=== PATIENT | male | born 1990 | race Caucasian/White ===

== ENCOUNTER 2018-07-12 11:46 | Day surgery (SDC) | payer OTHER ==
[~2018-07-12 11:46] MED LIST: CEFAZOLIN 2 GM/D5W RTU 2 GM/50 ML RTUPB IV ONE; CEFAZOLIN 2 GM/D5W RTU 2 GM/50 ML RTUPB IV PRN
[2018-07-12] MEDS ORDERED: DEXAMETHASONE SOD PHOSPHATE INJ 4 MG/1 ML VIAL ONE (12:40)
[2018-07-12] MEDS ORDERED: FENTANYL CITRATE INJ/PF 100 MCG/2 ML AMPUL ONE ×2 (12:40→16:23)
[2018-07-12] MEDS ORDERED: ONDANSETRON HCL INJ/PF 4 MG/2 ML SDV ONE (12:40)
[2018-07-12] MEDS ORDERED: PROPOFOL INJ 200 MG/20 ML VIAL IV ONE (12:40)
[2018-07-12] MEDS ORDERED: MIDAZOLAM 2 MG/2 ML INJ ONE (12:40)
[2018-07-12] MEDS ORDERED: ACETAMINOPHEN 1,000 MG/100 ML RTUPB IV ONE (12:41)
[2018-07-12] MEDS ORDERED: LIDOCAINE 1%/EPINEPHRINE INJ 20 ML VIAL ONE (13:16)
[2018-07-12] MEDS ORDERED: MORPHINE SULFATE 10 MG/ML INJ IV PRN (14:29)
[2018-07-12] MEDS ORDERED: FENTANYL CITRATE INJ/PF 100 MCG/2 ML AMPUL IV PRN ×3 (14:29)
[2018-07-12] MEDS ORDERED: ONDANSETRON HCL INJ/PF 4 MG/2 ML SDV IV PRN ×2 (14:29→16:26)
[2018-07-12] MEDS ORDERED: PROMETHAZINE HCL INJ 25 MG/1 ML VIAL IV PRN ×2 (14:29)
[2018-07-12] MEDS ORDERED: MEPERIDINE HCL/PF INJ 25 MG/1 ML DISP.SYRIN IV PRN (14:29)
[2018-07-12] MEDS ORDERED: DIPHENHYDRAMINE HCL 50 MG/ML VIAL IV PRN (14:29)
[2018-07-12] MEDS ORDERED: OXYCODONE-ACETAMINOPHEN 5-325 MG TABLET PO PRN (16:26)
--- NOTE | 2018-07-12 16:26 | Discharge Summary ---
Discharge Summary (SDC) - Discharge Final Diagnosis: Left small finger flexor tendon laceration, ulnar digital nerve laceration Date of Surgery: 07/12/18 Discharge Date: 07/12/18 Condition: Good Treatment or Instructions: Schedule Follow Up w/ Dr. Herson Garcia @ [facility] to be seen in 10-14 days or as scheduled [place]: [place]: [place]: Ice and elevate Keep splint clean/dry/intact. If your fingers become numb please unwrap the Wagner wrap but leave the splint in place, if the sensation does not return within 30 minutes please return to the emergency department. Please use ibuprofen (Motrin or Advil) 600-800 mg every 8 hours as needed for pain or fever DO NOT TAKE w/ TORADOL may use once TORADOL complete. You may also use acetaminophen (Tylenol) 1000 mg every 4-6 hours as needed for pain or fever. Please be aware that many medications contain acetaminophen, do not exceed a total of 1000 mg of acetaminophen every 6 hours. If ibuprofen and acetaminophen are not sufficient for your pain you may take the Percocet/[place]. Please be aware that the Percocet/[place] does contain Tylenol. Stool softener of choice when on pain medication. Prescriptions: Ketorolac Tromethamine [Toradol 10 mg Tablet] 10 mg PO Q8HP PRN #12 tablet PRN Reason: Oxycodone HCl/Acetaminophen [Percocet 5-325 mg Tablet] 1 - 2 tab PO Q6 #25 tablet Discharge Diet: As Tolerated Respiratory Treatments at Home: Deep Breathing/Coughing Discharge Activity: No Lifting Over 10 Pounds, No Lifting/Push/Pulling Report the Following to Your Physician Immediately: Fever over 101 Degrees, Unusual Bleeding, Redness, Swelling, Warmth, Increased Soreness
[2018-07-12] MEDS ORDERED: KETOROLAC TROMETHAMINE INJ/PF 30 MG/1 ML SDV ONE (16:35)
--- NOTE | 2018-07-12 16:35 | Operative Report ---
Operative Report DATE OF SURGERY: 07/12/18 PREOPERATIVE DIAGNOSIS: Left small finger zone II flexor tendon laceration, ulnar digital nerve laceration POSTOPERATIVE DIAGNOSIS: Left small finger zone I/II flexor tendon laceration, ulnar digital nerve laceration, skin loss along the PIP joint OPERATION: 1. Zone I/II FDP repair left small finger. 2. Ulnar digital nerve repair left small finger. 3. Complex closure less than 3 cm with skin advancement SURGEON: MIKE AYERS ANESTHESIA: LMAC COMPLICATIONS: None ESTIMATED BLOOD LOSS: Minimal PROCEDURE: Indication for above procedure: 27-year-old male who sustained a injury to his left small finger while he was evacuated. Patient was seen outside emergency room where the area was irrigated and loosely closed. He was then sent to sc for further evaluation and treatment. Patient findings on examination of digital nerve injury along with flexor tendon injury. Postoperative expectations, prognosis and rehabilitation explained to the patient after discussing risks and benefits of the surgical procedure patient verbalized understanding consented for the procedure. Procedure In Detail: Patient was seen and evaluated in the preoperative holding area. The LEFT upper extremity was initialized and marked. In the preoperative holding area the left upper extremity at the fifth digit was prepped with alcohol and a digital block was performed injecting 1% lidocaine with epinephrine 1: 100,000 patient tolerated procedure well. Patient received 2g of Ancef IV for bacterial prophylaxis. Patient was taken back to the operative room where transferred to the operative table and placed under general anesthesia. Once they were adequately anesthetized a nonsterile tourniquet was placed on the upper extremity. A surgical team debriefing was performed ensuring all instrumentation was available, the surgical procedure was discussed with possible concerns reviewed. Additional injection was performed to the MP, PIP and DIP joints with 1% lidocaine with epinephrine 1: 100,002 cc at the PIP and MP joints and 1 cc at the DIP joint. The upper extremity was prepped with Betadine and draped in a sterile fashion. A timeout was done identifying correct patient, procedure and extremity everyone in attendance agree with this and verbalized no concerns. Joseph's skin incision was made beginning at the A1 maury extending along the DIP joint. There was significant necrosis of the skin along the proximal phalanx leaving the area of skin defect with foul odor and a small amount of purulent drainage. Blunt dissection was performed. The area was copiously irrigated with normal saline. Exploration of the digit demonstrated intact radial neurovascular bundle but disruption of the ulnar digital nerve with a 30 mm defect. There is also laceration of the FDS and FDP with scarring of the distal aspect of the A2 maury and complete loss of the A4 maury in the volar plate along the DIP joint. The laceration of the tendon was in a oblique manner resulting in deficient tendon within zone I. The proximal aspect of the FDP was fed through the maury sheaths avoiding manipulation of the distal aspect to optimize healing. It was brought out to the level consistent with the transition point between zone I and II. The tendon was reapproximated with a M-Pereyra repair technique utilizing 4-0 fiber loop suture. It was then reinforced with a second core suture utilizing 4-0 fiber loop completing a 6 strand suture repair. During placement the core sutures the tendon was marked at 1 cm to ensure adequate fixation. Patient was awoken from anesthesia and was able to make a full composite fist and full extension of the digit without evidence of gapping. The repair site was then reapproximated with 6-0 Prolene epitendinous suture. Despite the fact there was no evidence of gapping there was poor definition tissue within zone 1 thus I placed a running Krakw suture proximally and distally this was fed through the distal aspect of the nail plate and tied over felt ensuring optimal tension to avoid over tensioning the flexor tendon. This essentially acted as a internal brace given the deficient tissue within the distal aspect of the FDP but avoid over tension of the flexor tendon. The wound was then copiously irrigated with normal saline. Under microscope magnification the proximal and distal aspect of the digital nerves were identified and debrided back to normal appearing fascicles. A 2 mm x 30 mm Avance nerve graft was opened and placed in saline until adequately thawed. The nerve graft was then reapproximated distally under microscope magnification with a epineural 9-0 nylon suture and reinforced with Tisseel fibrin glue. The proximal aspect was then repaired with an epineural 9-0 nylon suture reinforced with fibrin glue. There was no tension on the nerve graft throughout range of motion. The wound was once again irrigated with normal saline. Any nonviable skin along the injury site was then debrided leaving a defect. Thus the incision was extended more proximally and undermined so a proximal local advancement flap allowed for adequate closure of the skin defect which measured approximately 10 mm after debridement. This was first reapproximated with 4-0 nylon suture. The remaining skin was then closed with 4-0 nylon suture throughout passive and active motion there was no evidence of tension at the graft site. Patient had normal capillary refill and skin turgor at the completion of the case. Wound was dressed with Xeroform 4 x 4's and patient was placed in a dorsal blocking splint with the IP joints in neutral extension MP joints at 45 degrees extension and wrist at 25 degrees of extension. Sponge counts, instrument counts, needle counts counts were correct. Patient was then awoken from anesthesia. Transferred from the operating room table to the operating room stretcher. There was no intraoperative complications patient tolerated procedure well stable to PACU. Postoperative plan Patient will begin occupational therapy within 5-7 days as per [employer]'s flexor tendon repair protocol. We will proceed with suture removal along the nail plate approximately 4 weeks postoperatively or sooner if patient notices inability to passively extend.
[2018-07-12 18:22] VITALS: BP 118/75
== END 2018-07-12 18:10 | disposition home or self-care (01) ==
LOC: OROUT 11:46
PROVIDERS: ATTEND Orthopaedic Surgery
DX: S66.126A Laceration of flexor muscle, fascia and tendon of right little finger at wrist and hand level, initial encounter (principal); S64.497A Injury of digital nerve of left little finger, initial encounter; S61.217A Laceration without foreign body of left little finger without damage to nail, initial encounter; W26.8XXA Contact with other sharp object(s), not elsewhere classified, initial encounter; W17.89XA Other fall from one level to another, initial encounter; M79.645 Pain in left finger(s)
CPT/HCPCS: 26356; 64831; C9250; C1713; C1769; J2250; J1100; J3010; J3490; J1885; J2405; J2704; J0690; J0131; 1810

== ENCOUNTER 2018-09-06 13:03 | Day surgery (SDC) | payer OTHER ==
[~2018-09-06 13:03] MED LIST changes: +BUPIVACAINE HCL 0.5 % INJ/PF 30 ML SDV ONE; -CEFAZOLIN 2 GM/D5W RTU 2 GM/50 ML RTUPB IV ONE; -CEFAZOLIN 2 GM/D5W RTU 2 GM/50 ML RTUPB IV PRN; +CEFAZOLIN SODIUM 2 GM in DEXTROSE 5%-WATER 100 ML IV PRN; +LIDOCAINE 1% INJ-PF (10 MG/ML) 30 ML SDV ONE
[2018-09-06] MEDS ORDERED: CEFAZOLIN 2 GM/D5W RTU 2 GM/50 ML RTUPB IV ONE (13:27)
[2018-09-06 14:11] LABS: HEMATOCRIT 37.7 % (37.9-51.0); HEMOGLOBIN 13.1 g/dL (13.5-17.0); MEAN CORPUSCULAR HEMOGLOBIN 30.2 pg (27.0-33.4); MEAN CORPUSCULAR HGB CONC 34.7 g/dL (32.0-36.0); MEAN CORPUSCULAR VOLUME 87 fl (80-97); PLATELET COUNT 263 10^3/uL (150-450); RED BLOOD COUNT 4.33 10^6/uL (4.35-5.55); RED CELL DISTRIBUTION WIDTH 12.7 % (11.5-14.0); WHITE BLOOD COUNT 6.1 10^3/uL (4.0-10.5)
[2018-09-06 14:16] LABS: APPEARANCE,URINE CLEAR; BILIRUBIN,URINE NEGATIVE (NEGATIVE); COLOR,URINE YELLOW; GLUCOSE, URINE NEGATIVE (NEGATIVE); KETONES,URINE NEGATIVE (NEGATIVE); LEUKOCYTE ESTERASE,URINE NEGATIVE (NEGATIVE); NITRITE,URINE NEGATIVE (NEGATIVE); PROTEIN,URINE NEGATIVE (NEGATIVE); URINE SPECIFIC GRAVITY 1.025; UROBILINOGEN,URINE NEGATIVE mg/dL (<2.0)
[2018-09-06 14:40] LABS: ANION GAP 15 (5-19); BLOOD UREA NITROGEN 13 mg/dL (7-20); CARBON DIOXIDE 25 mmol/L (22-30); CHLORIDE 103 mmol/L (98-107); GLUCOSE 85 mg/dL (75-110); POTASSIUM 4.4 mmol/L (3.6-5.0); SODIUM 142.9 mmol/L (137-145)
[2018-09-06] MEDS ORDERED: MIDAZOLAM 2 MG/2 ML INJ ONE (15:45)
[2018-09-06] MEDS ORDERED: FENTANYL CITRATE INJ/PF 100 MCG/2 ML AMPUL ONE (15:45)
[2018-09-06] MEDS ORDERED: LIDOCAINE 2% INJ-PF (20 MG/ML) 10 ML AMPUL ONE (15:45)
[2018-09-06] MEDS ORDERED: ONDANSETRON HCL INJ/PF 4 MG/2 ML SDV ONE (15:45)
[2018-09-06] MEDS ORDERED: KETOROLAC TROMETHAMINE 60 MG/2 ML SDV ONE (15:45)
[2018-09-06] MEDS ORDERED: DEXAMETHASONE SOD PHOSPHATE INJ 4 MG/1 ML VIAL ONE (15:45)
[2018-09-06] MEDS ORDERED: PROPOFOL INJ 200 MG/20 ML VIAL IV ONE (15:46)
[2018-09-06] MEDS ORDERED: PROMETHAZINE HCL INJ 25 MG/1 ML VIAL IV PRN ×2 (16:24)
[2018-09-06] MEDS ORDERED: ONDANSETRON HCL INJ/PF 4 MG/2 ML SDV IV PRN ×2 (16:24→16:38)
[2018-09-06] MEDS ORDERED: FENTANYL CITRATE INJ/PF 100 MCG/2 ML AMPUL IV PRN ×3 (16:24)
[2018-09-06] MEDS ORDERED: MEPERIDINE HCL/PF INJ 25 MG/1 ML DISP.SYRIN IV PRN (16:24)
[2018-09-06] MEDS ORDERED: DIPHENHYDRAMINE HCL 50 MG/ML VIAL IV PRN (16:24)
[2018-09-06] MEDS ORDERED: MORPHINE SULFATE 10 MG/ML INJ IV PRN (16:24)
[2018-09-06] MEDS ORDERED: OXYCODONE-ACETAMINOPHEN 5-325 MG TABLET PO PRN (16:38)
--- NOTE | 2018-09-06 16:41 | Operative Report ---
Operative Report DATE OF SURGERY: 09/06/18 PREOPERATIVE DIAGNOSIS: Distal phalanx fracture left small finger POSTOPERATIVE DIAGNOSIS: Same OPERATION: Same SURGEON: MIKE AYERS ANESTHESIA: LMAC COMPLICATIONS: None ESTIMATED BLOOD LOSS: Minimal PROCEDURE: Indication for above procedure: 27-year-old male who sustained injury to his left small finger and underwent flexor tendon repair. Unfortunately during physical therapy during passive range of motion he sustained a fracture of his distal phalanx through the transosseous sutures. Patient was seen in my office which point we attempted conservative treatment but patient continued to have instability thus decision was made to proceed with operative intervention. Procedure In Detail: Patient was seen and evaluated in the preoperative holding area. The LEFT upper extremity was initialized and marked. Patient received 2g of Ancef IV for bacterial prophylaxis. Patient was taken back to the operative room where transferred to the operative table and placed under general anesthesia. Once they were adequately anesthetized a surgical team debriefing was performed ensuring all instrumentation was available, the surgical procedure was discussed with possible concerns reviewed. Local block was performed with 6 cc of 1% lidocaine without epinephrine. The upper extremity was prepped with chlorhexidine and alcohol and draped in a sterile fashion. Gentle passive motion was performed along the DIP, PIP and MCP joint obtaining full passive motion. The distal phalanx was then reduced a 0.045 K wire was placed obliquely across the fracture site ending just proximal to the articular surface. A second K wire 0.035 was placed obliquely to provide rotational stability. Both pins were then cut below the skin. There was notable stability of the fracture after pinning and no fracture motion with DIP joint passive flexion. Wound was dressed with Xeroform 4 x 4's and a loosely applied Coban.
--- NOTE | 2018-09-06 16:42 | Discharge Summary ---
Discharge Summary (SDC) - Discharge Final Diagnosis: LEFT small finger distal phalanx fracture Date of Surgery: 09/06/18 Discharge Date: 09/06/18 Condition: Good Prescriptions: Oxycodone HCl/Acetaminophen [Percocet 5-325 mg Tablet] 1 tab PO Q6 #15 tab Discharge Diet: As Tolerated Respiratory Treatments at Home: Deep Breathing/Coughing Discharge Activity: No Lifting Over 10 Pounds, No Lifting/Push/Pulling Report the Following to Your Physician Immediately: Fever over 101 Degrees, Unusual Bleeding, Redness, Swelling, Warmth
--- NOTE | 2018-09-06 18:53 | RADIOLOGY REPORT (SQ) ---
EXAM DESCRIPTION: NO CHG FLUORO; FINGER LEFT COMPLETED DATE/TIME: 09/06/2018 6:40 pm REASON FOR STUDY: PERC PINNING 5TH DIGIT COMPARISON: None. FLUOROSCOPY TIME: 35 seconds 2 Images saved to PACS LIMITATIONS: None. PROCEDURE: Percutaneous pinning of the 5th distal phalanx. FINDINGS: Images document the pinning of the 5th distal phalanx. IMPRESSION: Percutaneous pinning of the 5th distal phalanx. Refer to operative note for further inf ormation. COMMENT: PQRS 6045F: Fluoroscopy time of the procedure is documented in the report. TECHNICAL DOCUMENTATION: JOB ID: [id number] [employer]- All Rights Reserved Reading location - IP/workstation name: [email or web address]
--- NOTE | 2018-09-06 18:53 | RADIOLOGY REPORT (SQ) ---
EXAM DESCRIPTION: NO CHG FLUORO; FINGER LEFT COMPLETED DATE/TIME: 09/06/2018 6:40 pm REASON FOR STUDY: PERC PINNING 5TH DIGIT COMPARISON: None. FLUOROSCOPY TIME: 35 seconds 2 Images saved to PACS LIMITATIONS: None. PROCEDURE: Percutaneous pinning of the 5th distal phalanx. FINDINGS: Images document the pinning of the 5th distal phalanx. IMPRESSION: Percutaneous pinning of the 5th distal phalanx. Refer to operative note for further inf ormation. COMMENT: PQRS 6045F: Fluoroscopy time of the procedure is documented in the report. TECHNICAL DOCUMENTATION: JOB ID: [id number] [employer]- All Rights Reserved Reading location - IP/workstation name: [email or web address]
[2018-09-06 18:56] VITALS: BP 111/65
== END 2018-09-06 18:55 | disposition home or self-care (01) ==
LOC: OROUT 13:03
PROVIDERS: ATTEND Orthopaedic Surgery
PROC: 0PSV04Z Reposition Left Finger Phalanx with Internal Fixation Device, Open Approach (ICD-10-PCS; principal; 2018-09-06 15:15)
DX: S62.637A Displaced fracture of distal phalanx of left little finger, initial encounter for closed fracture (principal); X58.XXXA Exposure to other specified factors, initial encounter
CPT/HCPCS: 36415; 85027; 80048; 81001; 73140; 26765; C1713 ×2; J2250; J3490 ×3; J1100; J1885; J3010; J2405; J2704; J0690; 01820

== ENCOUNTER 2018-12-20 09:50 | Day surgery (SDC) | payer OTHER ==
[2018-12-13 09:36] LABS: HEMATOCRIT 42.3 % (37.9-51.0); HEMOGLOBIN 14.6 g/dL (13.5-17.0); MEAN CORPUSCULAR HEMOGLOBIN 30.6 pg (27.0-33.4); MEAN CORPUSCULAR HGB CONC 34.5 g/dL (32.0-36.0); MEAN CORPUSCULAR VOLUME 89 fl (80-97); PLATELET COUNT 248 10^3/uL (150-450); RED BLOOD COUNT 4.77 10^6/uL (4.35-5.55); RED CELL DISTRIBUTION WIDTH 13.2 % (11.5-14.0); WHITE BLOOD COUNT 5.1 10^3/uL (4.0-10.5)
[2018-12-13 09:42] LABS: APPEARANCE,URINE CLEAR; BILIRUBIN,URINE NEGATIVE (NEGATIVE); COLOR,URINE YELLOW; GLUCOSE, URINE NEGATIVE (NEGATIVE); KETONES,URINE NEGATIVE (NEGATIVE); LEUKOCYTE ESTERASE,URINE NEGATIVE (NEGATIVE); NITRITE,URINE NEGATIVE (NEGATIVE); PROTEIN,URINE NEGATIVE (NEGATIVE); URINE SPECIFIC GRAVITY 1.023; UROBILINOGEN,URINE NEGATIVE mg/dL (<2.0)
[2018-12-13 10:04] LABS: ANION GAP 11 (5-19); BLOOD UREA NITROGEN 18 mg/dL (7-20); CALCIUM 10.3 mg/dL (8.4-10.2); CARBON DIOXIDE 30 mmol/L (22-30); CHLORIDE 103 mmol/L (98-107); GLUCOSE 97 mg/dL (75-110); POTASSIUM 4.7 mmol/L (3.6-5.0); SODIUM 144.3 mmol/L (137-145)
--- NOTE | 2018-12-13 11:05 | RADIOLOGY REPORT (SQ) ---
EXAM DESCRIPTION: CHEST PA/LATERAL COMPLETED DATE/TIME: 12/13/2018 10:33 am REASON FOR STUDY: PRE-OP COMPARISON: None. EXAM PARAMETERS: NUMBER OF VIEWS: two views TECHNIQUE: Digital Frontal and Lateral radiographic views of the chest acquired. RADIATION DOSE: NA LIMITATIONS: none FINDINGS: LUNGS AND PLEURA: No opacities, masses or pneumothorax. No pleural effusion. MEDIASTINUM AND HILAR STRUCTURES: No masses or contour abnormalities. HEART AND VASCULAR STRUCTURES: Heart normal size. No evidence for failure. BONES: No acute findings. HARDWARE: None in the chest. OTHER: No other significant finding. IMPRESSION: NO SIGNIFICANT RADIOGRAPHIC FINDING IN THE CHEST. TECHNICAL DOCUMENTATION: JOB ID: [id number] [employer]- All Rights Reserved Reading location - IP/workstation name: [email or web address]
--- NOTE | 2018-12-13 20:54 | EKG REPORT ---
SEVERITY:- NORMAL ECG - SINUS RHYTHM : Confirmed by: Loraine Govea MD 13-Dec-2018 20:54:17
[~2018-12-20 09:50] MED LIST changes: -BUPIVACAINE HCL 0.5 % INJ/PF 30 ML SDV ONE; +CEFAZOLIN 2 GM/D5W RTU 2 GM/50 ML RTUPB IV PRN; -CEFAZOLIN SODIUM 2 GM in DEXTROSE 5%-WATER 100 ML IV PRN; +LACTATED RINGERS 1000 ML IV PRN; +LIDOCAINE 0.5% INJ-PF (5 MG/ML) 50 ML SDV SUBCUT PRN; -LIDOCAINE 1% INJ-PF (10 MG/ML) 30 ML SDV ONE
[2018-12-20] MEDS ORDERED: CEFAZOLIN 2 GM/D5W RTU 2 GM/50 ML RTUPB IV ONE (09:57)
[2018-12-20] MEDS ORDERED: LIDOCAINE 1% INJ-PF (10 MG/ML) 30 ML SDV ONE (10:38)
[2018-12-20] MEDS ORDERED: ONDANSETRON HCL INJ/PF 4 MG/2 ML SDV ONE (12:23)
[2018-12-20] MEDS ORDERED: PROPOFOL INJ 200 MG/20 ML VIAL IV ONE ×2 (12:23→14:01)
[2018-12-20] MEDS ORDERED: ACETAMINOPHEN 1,000 MG/100 ML RTUPB IV ONE (12:23)
[2018-12-20] MEDS ORDERED: FENTANYL CITRATE INJ/PF 100 MCG/2 ML AMPUL ONE ×2 (12:23→13:56)
[2018-12-20] MEDS ORDERED: MIDAZOLAM 2 MG/2 ML INJ ONE (12:23)
[2018-12-20] MEDS ORDERED: DEXAMETHASONE SOD PHOSPHATE INJ 4 MG/1 ML VIAL ONE (12:23)
[2018-12-20] MEDS ORDERED: ONDANSETRON HCL INJ/PF 4 MG/2 ML SDV IV PRN (13:06)
[2018-12-20] MEDS ORDERED: MEPERIDINE HCL/PF INJ 25 MG/1 ML DISP.SYRIN IV PRN (13:06)
[2018-12-20] MEDS ORDERED: MORPHINE SULFATE 10 MG/ML INJ IV PRN ×2 (13:06→13:57)
[2018-12-20] MEDS ORDERED: FENTANYL CITRATE INJ/PF 100 MCG/2 ML AMPUL IV PRN ×2 (13:06)
[2018-12-20] MEDS ORDERED: DIPHENHYDRAMINE HCL 50 MG/ML VIAL IV PRN (13:06)
[2018-12-20] MEDS ORDERED: PROMETHAZINE HCL INJ 25 MG/1 ML VIAL IV PRN ×2 (13:06)
[2018-12-20] MEDS ORDERED: OXYCODONE-ACETAMINOPHEN 5-325 MG TABLET PO PRN (13:57)
[2018-12-20] MEDS: FENTANYL CITRATE INJ/PF 100 MCG/2 ML AMPUL IV PRN ×2 (14:00→14:07)
--- NOTE | 2018-12-20 14:03 | Discharge Summary ---
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 Herson Garcia @ [facility] for Surgery to be seen in 10-14 days or as scheduled [place]: [place]: [place]: May remove dressing on postop day #3, keep incision covered and dry. Ice and elevate May begin finger range of motion attempting to make full fist. Stool softener of choice when on pain medication. USE OF [id number] IBUPROFEN: Ibuprofen (Advil, Nuprin, Medipren, Motrin IB) is a medication for fever and pain control. In addition, it has anti- inflammatory effects which may be beneficial, especially in the treatment of injuries. It's best to take ibuprofen with food. Persons with ulcer disease or allergy to aspirin should notify their physician of this before taking ibuprofe n. Ibuprofen can be given every four to six hours, for a total of four doses daily. Age Pain or fever dose Antiinflammatory dose 6-8 yr 200 mg (1 tab) 200 mg (1 tab) 9-11 yr 200 mg (1 tab) 200-400 mg (1-2 tab) 11-14 yr 200-400 mg (1-2 tab) 400 mg (2 tab) 15-adult 400 mg (2 tab) 600 mg (3 tab) ORAL NARCOTIC MEDICATION: You have been given a prescription for pain control. This medication is a narcotic. It's best taken with food, as nausea can result if taken on an empty stomach. Don't operate machinery or drive within six hours of taking this medication. Do not combine this medicine with alcohol, or with any medication which can cause sedation (such as cold tablets or sleeping pills) unless you get permission from the physician. Narcotics tend to cause constipation. If possible, drink plenty of fluids and eat a diet high in fiber and fruits. Please be aware that prescription narcotics also have the potential for abuse. People become addicted to these medications because of the general sense of wellbeing that they induce. This feeling along with a significant reduction in tension, anxiety, and aggression provides a stimulating seductive quality to these drugs. Once your pain is under control, we encourage you to discard your unused narcotics. Prescriptions: Ketorolac Tromethamine [Toradol 10 mg Tablet] 10 mg PO Q8HP PRN #12 tablet PRN Reason: Oxycodone HCl/Acetaminophen [Percocet 5-325 mg Tablet] 1 tab PO Q6 PRN #25 tab PRN Reason: Discharge Diet: As Tolerated Respiratory Treatments at Home: Deep Breathing/Coughing Discharge Activity: No Lifting Over 10 Pounds, No Lifting/Push/Pulling Report the Following to Your Physician Immediately: Fever over 101 Degrees, Un usual Bleeding, Redness, Swelling, Warmth, Increased Soreness
--- NOTE | 2018-12-20 14:03 | Operative Report ---
Operative Report DATE OF SURGERY: 12/20/18 PREOPERATIVE DIAGNOSIS: Flexor adhesions left small finger, PIP joint flexion c ontracture retained hardware distal phalanx POSTOPERATIVE DIAGNOSIS: Same OPERATION: Flexor tenolysis left small finger with PIP joint capsulotomy, weinberg rdware removal ANESTHESIA: LMAC COMPLICATIONS: None ESTIMATED BLOOD LOSS: Minimal PROCEDURE: Indication for above procedure: 28-year-old male who sustained laceration to his small finger underwent flexor tendon repair unfortunately he then developed a distal phalanx fracture and underwent percutaneous pinning. Throughout his rehabilitation he has continued to demonstrate worsening flexion contracture the PIP joint at that point after exhausting occupational therapy decision was made to proceed with operative treatment. Postoperative expectations outcomes and rehabilitation were explained patient verbalized understanding consented for the surgical procedure. Procedure In Detail: Patient was seen and evaluated in the preoperative holding area. The LEFT upper extremity was initialized and marked. Patient received 2g of Ancef IV for bacterial prophylaxis. Patient was taken back to the operative room where transferred to the operative table. Once they were adequately anesthetized a nonsterile tourniquet was placed on the upper extremity. A surgical team debriefing was performed ensuring all instrumentation was available, the surgical procedure was discussed with possible concerns reviewed. A digital block was performed utilizing 10 mL of 1% lidocaine without epinephrine. The upper extremity was prepped with chlorhexidine and alcohol and draped in a sterile fashion. A timeout was done identifying correct patient, procedure and extremity everyone in attendance agree with this and verbalized no concerns. The extremity was exsanguinated the tourniquet was inflated to 250 mmHg. Previous K wire within the distal phalanx was isolated and removed. C arm was obtained confirming healing of the distal phalanx fracture. Mid lateral skin incision was utilized along the ulnar aspect. Blunt dissection was performed. Digital nerve repair was identified and remained intact. There was significant scarring of the skin to the overlying maury sheath throughout the incision and proximally. Sharp dissection was performed overlying the A2 maury to ensure preservation. Once the maury was completely identified along with the ulnar neurovascular bundle the radial neurovascular bundle was identified. With a tenolysis knife the FDP tendon was freed proximally. The radial slip of the FDS remained intact and was also tenolysed proximally from the FDP. FDP repair at the DIP joint was healed. Retracting the FDS and FDP tendon the volar plate was at the PIP joint was released along with the radial and ulnar collateral ligaments. With a gentle passive extension maneuver full passive PIP joint extension was achieved. At the DIP joint the collateral ligaments were also released to passively extend the digit to approximately 25 degrees of flexion. Tourniquet was deflated any peripheral bleeding was controlled with bipolar cautery. Patient was awoken from anesthesia was able to fully actively flex the DIP and PIP joints to distal palmar crease. Residual PIP joint flexion contracture of approximately 20 degrees but given the tenuous skin decision was made to leave residual 20 degree flexion contracture. Wound was then copiously irrigated with normal saline. Skin was closed with interrupted 4-0 nylon suture. A transverse split within the digit secondary to improved extension was closed as well with 4-0 nylon suture. Wound was dressed with Xeroform 4 x 4's and patient was placed in a ulnar gutter splint maintaining full extension of the small finger. Sponge counts, instrument counts, needle counts counts were correct. Patient was then awoken from anesthesia. Transferred from the operating room table to the operating room stretcher. There was no intraoperative complications patient tolerated procedure well stable to PACU. Postoperative plan: Patient will follow-up as scheduled for wound check. Patient will begin occupational therapy within 72 hours
--- NOTE | 2018-12-20 14:41 | RADIOLOGY REPORT (SQ) ---
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 FLUOROSCOPY TIME: 4 seconds 3 images saved to PACS. TECHNIQUE: Intra-operative images acquired during surgical procedure to evaluate progress. NUMBER OF IMAGES: 3 LIMITATIONS: None. FINDINGS: Images mild 5th distal phalanx with removal of orthopedic pins. IMPRESSION: IMAGE(S) OBTAINED DURING PROCEDURE. COMMENT: Quality ID 145: Final reports for procedures using fluoroscopy that document radiation exp osure indices, or exposure time and number of fluorographic images (if radiation exposure indices are not available) Please consult full operative report of the attending physician for description of the procedure. TECHNICAL DOCUMENTATION: JOB ID: [id number] [employer]- All Rights Reserved Reading location - IP/workstation name: [email or web address]
--- NOTE | 2018-12-20 14:41 | RADIOLOGY REPORT (SQ) ---
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 FLUOROSCOPY TIME: 4 seconds 3 images saved to PACS. TECHNIQUE: Intra-operative images acquired during surgical procedure to evaluate progress. NUMBER OF IMAGES: 3 LIMITATIONS: None. FINDINGS: Images mild 5th distal phalanx with removal of orthopedic pins. IMPRESSION: IMAGE(S) OBTAINED DURING PROCEDURE. COMMENT: Quality ID 145: Final reports for procedures using fluoroscopy that document radiation exp osure indices, or exposure time and number of fluorographic images (if radiation exposure indices are not available) Please consult full operative report of the attending physician for description of the procedure. TECHNICAL DOCUMENTATION: JOB ID: [id number] [employer]- All Rights Reserved Reading location - IP/workstation name: [email or web address]
[2018-12-20] MEDS ORDERED: OXYCODONE-ACETAMINOPHEN 5-325 MG TABLET ONE (14:47)
[2018-12-20 16:46] VITALS: BP 117/72
== END 2018-12-20 15:40 | disposition home or self-care (01) ==
LOC: OROUT 09:50
PROVIDERS: ATTEND Orthopaedic Surgery
DX: M24.542 Contracture, left hand (principal); M65.842 Other synovitis and tenosynovitis, left hand; T84.84XA Pain due to internal orthopedic prosthetic devices, implants and grafts, initial encounter; Y83.8 Other surgical procedures as the cause of abnormal reaction of the patient, or of later complication, without mention of misadventure at the time of the procedure
CPT/HCPCS: 20680; 93005; 93010; 36415; 85027; 80048; 81001; 71046; 73140; 26440; 26525; J2250; J1100; J3010; J3490; J2405; J2704; J0690; J0131; 01810